=== PATIENT | female | born 1935 | race Caucasian/White ===

== ENCOUNTER 2018-02-03 02:05 | Emergency (ER) | payer OTHER ==
[~2018-02-03] VITALS: Ht 147.3 cm; Wt 56.1 kg
[~2018-02-03 02:05] MED LIST: ASCORBIC ACID250 MG PO; ASPIR-TRIN325 M1 PO; AUGMENTIN875 MG PO; Ascorbic Acid PO; CARDIZEM CD,CA360 MG PO; CARDIZEM CD240 MG PO; COLACE100 MG PO; COUMADIN,JANTO1.5 MG PO; COUMADIN,JANTO2.5 MG PO; COUMADIN,JANTOVE2 MG PO; COUMADIN3 M1 PO; Cardizem CD,Cartia X PO; Cipro PO; Coumadin,Jantoven PO; DIGITEK125 MCG PO; DULCOLAX5 MG PO; Dulcolax PO; FEOSOL325 MG PO; K-DUR20 MEQ PO; LANOXIN,DIGI0.125 MG PO; LASIX20 MG PO; LASIX40 MG PO; LASIX80 MG PO; LIPITOR80 MG PO; LOPRESSOR50 MG PO; Lasix PO; Levaquin PO; Lopressor PO; NAFCIL2 GM IV; NORCO 5/3251 TABLET PO; Osteo-Biflex,Flex-A- PO; PACERONE200 M1 PO; PRILOSEC40 MG PO; PROTONIX40 MG PO; Prilosec PO; Prozac PO; REMERON15 M2 PO; Remeron PO; TAZTIA XT180 M1 PO; THERAGRAN1 TABLET PO; Tenormin PO; VESICARE5 MG PO; ZAROXOLYN2.5 MG PO; ZESTRIL,PRINIVI10 M1 PO; ZESTRIL,PRINIVIL5 MG PO; ZETIA10 MG PO; Zestril,Prinivil PO
[2018-02-03 05:13] VITALS: BP 150/85
== END 2018-02-03 05:20 | disposition home or self-care (01) ==
LOC: EME 02:05
PROVIDERS: Emergency Medicine
PROC: 0HQ1XZZ Repair Face Skin, External Approach (ICD-10-PCS; principal; 2018-02-03)
DX: S01.81XA Laceration without foreign body of other part of head, initial encounter (principal); S70.00XA Contusion of unspecified hip, initial encounter; R68.84 Jaw pain; W01.10XA Fall on same level from slipping, tripping and stumbling with subsequent striking against unspecified object, initial encounter; M25.512 Pain in left shoulder; I25.2 Old myocardial infarction; I50.9 Heart failure, unspecified; I11.0 Hypertensive heart disease with heart failure; M81.0 Age-related osteoporosis without current pathological fracture; F41.9 Anxiety disorder, unspecified; Z95.2 Presence of prosthetic heart valve; Z96.653 Presence of artificial knee joint, bilateral; Z79.01 Long term (current) use of anticoagulants
CPT/HCPCS: 70450; 70486; 72125; 73030; 73110; 73502; 73564; 85610; 99281; 99284

== ENCOUNTER 2018-02-12 13:06 | Emergency (ER) | payer OTHER ==
[~2018-02-12] VITALS: Ht 147.3 cm; Wt 57.5 kg
[2018-02-12 14:16] LABS: HEMATOCRIT 43.4 % (36.0-46.0); HEMOGLOBIN 13.5 G/DL (11.9-15.5); MCH 26.9 PG (29.0-34.0); MCHC 31.1 G/DL (30.0-36.0); MCV 86.6 FL (83-99); PLATELET COUNT 106 K/uL (156-360); RBC DIS.WIDTH-CV 15.1 % (11.8-14.6); RBC DIS.WIDTH-SD 47.8 % (39-53); RED BLOOD COUNT 5.01 M/uL (3.80-5.20); WHITE BLOOD COUNT 6.6 K/uL (4.1-10.2)
[2018-02-12 14:21] LABS: INTER. NORMALIZED RATIO 2.1
[2018-02-12 14:23] LABS: ALBUMIN 3.9 g/dL (3.2-4.8)
[2018-02-12 14:24] LABS: CHLORIDE 100 mEq/L (99-109); POTASSIUM 4.2 mEq/L (3.7-5.4); PTT 35.6 SEC (25-37); SODIUM 140 mEq/L (136-147)
[2018-02-12 14:26] LABS: GLUCOSE 91 mg/dL (70-99); TOTAL PROTEIN 6.9 g/dL (6.4-8.3)
[2018-02-12 14:28] LABS: TOTAL BILIRUBIN 0.7 mg/dL (0.0-1.0)
[2018-02-12 14:29] LABS: ALKALINE PHOSPHATASE 91 IU/L (3-129)
[2018-02-12 14:30] LABS: GFR ESTIMATE (CALCULATED) 56 mL/min/
[2018-02-12 14:31] LABS: AST (GOT) 44 IU/L (2-34); UREA NITROGEN (BUN) 33 mg/dL (9-23)
[2018-02-12 14:32] LABS: ALT (GPT) 31 IU/L (3-49)
[2018-02-12 15:21] VITALS: BP 132/63
== END 2018-02-12 15:21 | disposition home or self-care (01) ==
LOC: EME 13:06
PROVIDERS: Nurse Practitioner Family
DX: M54.9 Dorsalgia, unspecified (principal); M54.2 Cervicalgia; W18.30XA Fall on same level, unspecified, initial encounter; I48.91 Unspecified atrial fibrillation; Z79.01 Long term (current) use of anticoagulants; I11.0 Hypertensive heart disease with heart failure; I50.9 Heart failure, unspecified; I25.2 Old myocardial infarction; F41.9 Anxiety disorder, unspecified; M81.0 Age-related osteoporosis without current pathological fracture; Z95.2 Presence of prosthetic heart valve; Z85.828 Personal history of other malignant neoplasm of skin; Z96.653 Presence of artificial knee joint, bilateral
CPT/HCPCS: 70450; 72040; 80053; 85027; 85610; 85730; 99281; 99285